=== PATIENT | female | born 1940 | race Caucasian/White ===

== ENCOUNTER → 2021-02-11 14:50 | Outpatient (CLI) | payer MEDICARE, BC ==
[2021-02-11 17:35] LABS: BASOPHILS 0.4 % (0-2); EOSINOPHILS 0.1 % (0-7); HEMATOCRIT 36.2 % (36.0-48.0); HEMOGLOBIN 11.9 g/dL (12-16); LYMPHOCYTES 5.8 % (15-50); MCHC 32.7 g/dL (31.0-37.0); MCV 97.8 fL (80.0-100.0); MEAN PLATELET VOLUME 7.8 fL (7.4-10.4); MONOCYTES 11.4 % (2-11); NEUTROPHILS 82.3 % (40-80); PLATELET COUNT 248 10x3/uL (130-400); RDW 14.7 % (11.5-14.5); WBC 17.1 10x3/uL (4.8-10.8)
[2021-02-11 17:40] LABS: BACTERIA MANY HPF (NONE SEEN); BILIRUBIN NEGATIVE (NEGATIVE); KETONE NEGATIVE (NEGATIVE); NITRITE NEGATIVE (NEGATIVE); UROBILINOGEN NORMAL mg/dL (< 2); WHITE CELLS - URINE 0-5 HPF (0-4)
[2021-02-11 17:44] LABS: ANION GAP 14.8 mmol/L (8-16); CALCIUM 7.7 mg/dL (8.5-10.1); CARBON DIOXIDE 26.1 mmol/L (21.0-32.0); CREATININE - SERUM 1.3 mg/dL (0.6-1.3); POTASSIUM - SERUM 4.9 mmol/L (3.5-5.1)
== END | disposition home or self-care (01) ==
LOC: D.LABREF 14:50
PROVIDERS: ATTEND Family Medicine
DX: R50.9 Fever, unspecified (principal)